=== PATIENT | female | born 1975 | race American Indian/Alaskan Native ===

== ENCOUNTER 2025-09-08 14:45 | Emergency (ER) | payer BC, OTHER ==
[2025-09-08] MEDS ORDERED: Sodium Chloride 0.9% 10 ML Syringe FLUSH PRN (15:30)
[2025-09-08 15:51] LABS: BASOPHILS PERCENT AUTO 0.3 % (0.0-1.0); EOSINOPHILS PERCENT AUTO 0.6 % (1.0-3.0); LYMPHOCYTES PERCENT AUTO 20.8 % (20.5-50.1); MONOCYTES PERCENT AUTO 5.3 % (2-8); NEUTROPHILS PERCENT AUTO 73.0 % (42.2-75.2); PLATELET COUNT,PLT 236 10^3/uL (150-450); RED BLOOD CELL COUNT 4.29 10^6/uL (4.2-5.4); WHITE BLOOD CELL COUNT,WBC 10.3 10^3/uL (5.0-10.0)
[2025-09-08 16:13] LABS: A/G RATIO 1.2; ALANINE AMINOTRANSFERASE,ALT 21 U/L (14-59); ASPARTATE AMNIOTRANSFERASE,AST 14 U/L (15-37); BILIRUBIN TOTAL 0.4 mg/dL (0.2-1.0); BLOOD UREA NITROGEN,BUN 16 mg/dL (7-18); CARBON DIOXIDE,CO2 26 mmol/L (21-32); CHLORIDE,CL 108 mmol/L (98-107); CREATININE 0.86 mg/dL (0.55-1.02); EST CRCL DRUG DOSING (CG) 67.58 mL/min; ESTIMATED GFR 82 mL/min (>=60); GLUCOSE RANDOM 111 mg/dL (70-99); POTASSIUM,K 3.9 mmol/L (3.5-5.1); PROTEIN TOTAL,TP 7.4 g/dL (6.4-8.2); SODIUM,NA 144 mmol/L (136-145)
[2025-09-08 16:36] LABS: T4 FREE 1.31 ng/dL (0.76-1.46); TSH ULTRASENSITIVE 0.76 uIU/mL (0.36-3.74)
[2025-09-08 17:16] VITALS: BP 100/68; PULSE 70
[2025-09-08] MEDS: Take Home: hydrOXYzine HCl 25 MG Tab, 4 Tab Pack PO ONE (17:22)
== END 2025-09-08 17:22 ==
LOC: DL.ED 14:45
DX: R06.02 Shortness of breath (principal); Z79.899 Other long term (current) drug therapy; Z90.710 Acquired absence of both cervix and uterus
CPT/HCPCS: 36415; 71046; 80053; 83036; 83735; 84439; 84443; 84484; 85025; 85379; 93005; 93010; 96374; 99283; 99285-25; A9270-GY; J3360